=== PATIENT | female | born 1995 | race Two or more races ===

== ENCOUNTER 2024-02-22 18:11 | Emergency (ER) | payer OTHER ==
[~2024-02-22] VITALS: Ht 154.9 cm; Wt 109.1 kg
[2024-02-22 19:00] VITALS: BP 130/90; PULSE 88; RESP 18; TEMP 97.8; O2SAT 99
--- NOTE | 2024-02-22 19:33 | ED.PDOC ---
HPI Comments 28-year-old female with no pertinent past medical history, presents to ED for left thumb laceration x2 hours, without any other associated symptoms. Patient states that she cut herself with broken glass. She denies any numbness, tingling. She currently rates her pain as 3/10 in severity. No alleviating or aggravating factors. Patient reports that her last Tdap was within 5 years. Chief Complaint: Puncture Wound Time Seen by MD: 18:35 Reviewed Notes: Nurses Notes, Medications, Allergies Mode of Arrival: Ambulatory Complexity: Simple Laceration Length (cm): 1 Past Medical History PAST MEDICAL HISTORY: Denies Surgical History: Denies all surgeries HEAD OF GLOBAL STRATEGIC PARTNERSHIPS History: No Pertinent HEAD OF GLOBAL STRATEGIC PARTNERSHIPS History Family History Family History: Reviewed,noncontributory to illness Social History Smoker: Non-Smoker Alcohol: Denies ETOH Use Drugs: Denies Drug Use Constitutional: denies: chills, diaphoresis, fatigue, fever, malaise, sweats, weakness, others EENTM: denies: blurred vision, double vision, ear bleeding, ear discharge, ear drainage, ear pain, ear ringing, eye pain, eye redness, hearing loss, mouth pain, mouth swelling, nasal discharge, nose bleeding, nose congestion, nose pain, photophobia, tearing, throat pain, throat swelling, voice changes, others Respiratory: denies: cough, hemoptysis, orthopnea, SOB at rest, shortness of breath, SOB with excertion, stridor, wheezing, others Cardiovascular: denies: chest pain, dizzy spells, diaphoresis, Dyspnea on exertion, edema, irregular heart beat, left arm pain, lightheadedness, palpitations, PND, syncope, others Gastrointestinal: denies: abdomen distended, abdominal pain, blood streaked bowels, constipated, diarrhea, dysphagia, difficulty swallowing, hematemesis, melena, nausea, poor appetite, poor fluid intake, rectal bleeding, rectal pain, vomiting, others Genitourinary: denies: abnormal vagina bleeding, burning, dyspareunia, dysuria, flank pain, frequency, hematuria, incontinence, pain, , vagina discharge, urgency, others Neurological: denies: dizziness, fainting, headache, left sided numbness, left sided weakness, numbness, paresthesia, pre-existing deficit, right sided numbness, right sided weakness, seizure, speech problems, tingling, tremors, weakness, others Musculoskeletal: reports: joint pain; denies: back pain, gout, joint swelling, muscle pain, muscle stiffness, neck pain, others Integumetry: reports: laceration; denies: bruises, change in color, change in hair/nails, dryness, lesions, lumps, rash, wounds, others Allergic/Immunocompromised: denies: Difficulty Healing, Frequent Infections, Hives, Itching, others Hematologic/Lymphatic: denies: anemia, blood clots, easy bleeding, easy bruising, swollen glands, others Endocrine: denies: excessive hunger, excessive sweating, excessive thirst, excessive urination, flushing, intolerance to cold, intolerance to heat, unexplained weight gain, unexplained weight loss, others Psychiatric: denies: anxiety, bipolar disorder, depression, hopeless, panic disorder, schizophrenia, sleepless, suicidal, others All Other Systems: Reviewed and Negative Physical Exam General Appearance: No Apparent Distress, Normal HEENT: Normal ENT Inspection, Pharynx Normal, TMs Normal Neck: Full Range of Motion, Non-Tender, Normal, Normal Inspection Respiratory: Chest Non-Tender, Lungs Clear, No Accessory Muscle Use, No Respiratory Distress, Normal Breath Sounds Cardiovascular: No Edema, No JVD, No Murmur, No Gallop, Normal Peripheral Pulses, Regular Rate/Rhythm Breast Exam: Deferred Gastrointestinal: No Organomegaly, Non Tender, No Pulsatile Mass, Normal Bowel Sounds, Soft Genitalia: Deferred Pelvic: Deferred Rectal: Deferred Extremities: No calf tenderness, Normal capillary refill, Normal inspection, Normal range of motion, Non-tender, No pedal edema Musculoskeletal : Apperance: Normal Neurologic: Alert, 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 No foreign body noted.), Normal Color, Warm Lymphatic: No Adenopathy Was a procedure done? Was a procedure done?: Yes Sedation Sedation?: No Laceration Repair : Length 1cm Laceration Repair Prep: Saline, by Irrigation Laceration Repair Wound Comple: epidermis/dermis repair Laceration Repair: Skin, Dermabond Informed consent obtained: Yes Risks, benefits, and alternati: Yes Notes The laceration was prepared in a sterile manner. Betadine was used to clean the surrounding region. Laceration itself was thoroughly irrigated with normal saline. Laceration was repaired using Dermabond. Patient tolerated procedure well without any complications. Differential diagnosis Generic Laceration: Tendon Injury, Abrasion/Contusion, Laceration X-Ray, Labs, Meds, VS Vital Signs Date Time Temp Pulse Resp B/P (MAP) Pulse Ox O2 Delivery O2 Flow Rate FiO2 02/22/24 18:20 97.8 88 18 130/90 (103) 99 X-Ray, Labs, Meds, VS Comment MDM: Patient with history as above presented with laceration. History obtained from patient. Patient was nontoxic, stable, afebrile, ambulatory, no acute distress. Exam as above. Exam reassuring against acute infection or surgical pathology. Differential diagnosis considered. Overall presentation is consistent with simple laceration. Low suspicion for foreign body, open fracture, infection, tendon injury, neurovascular injury. Laceration repair was done by me as described above, with improvement in symptoms. Patient was given post-laceration repair instructions. Keep the area dry for the next 24 hours. Avoid vigorously scrubbing the area afterwards and avoid excessive movement of the affected area. Return to the ED if any signs or symptoms of infection, including fever, drainage from the wound, increased redness, swelling, or pain. Consideration was given for admission, but the patient was stable for outpatient management. Tdap was up-to-date. Disposition: Discussed the need to follow up diagnostics, including incidental findings. Discharged the patient with instructions to obtain outpatient follow up of today's symptoms and findings, with strict return precautions if patient develops new or worsening symptoms. This medical document was created using the [employer] dictation system. Although this document has been carefully reviewed, there may still be some phonetic and typographical errors, which are due to imperfections of the software program, and do not reflect any compromise in the patient's medical care. Time of 1ST Reevaluation: 19:32 Reevaluation 1ST: Improved Patient Education/Counseling: Diagnosis, Treatment, Prognosis, Need For Follow Up Family Education/Counseling: Diagnosis, Treatment, Prognosis, Need For Follow Up Departure 1 Departure Time of Disposition: 19:32 Impression: Primary Impression: Thumb laceration Qualified Codes: S61.012A - Laceration without foreign body of left thumb without damage to nail, initial encounter Disposition: 01 HOME / SELF CARE / HOMELESS Condition: Fair Critical Care Note Critical Care Time?: No Stability Stability form required: No Heart Score Heart Score: Heart Score Response (Comments) Value History N/A 0 EKG N/A 0 Age N/A 0 Risk Factors N/A 0 Troponin N/A 0 Total 0 OBED DESAI PAC Feb 22, 2024 19:33
== END 2024-02-22 19:45 | disposition home or self-care (01) ==
LOC: ER 18:11
DX: S61.012A Laceration without foreign body of left thumb without damage to nail, initial encounter (principal); W25.XXXA Contact with sharp glass, initial encounter; Y93.89 Activity, other specified; Y92.89 Other specified places as the place of occurrence of the external cause; Y99.8 Other external cause status
CPT/HCPCS: 12001

== ENCOUNTER 2025-02-13 10:45 | Emergency (ER) | payer OTHER ==
[~2025-02-13] VITALS: Ht 154.9 cm; Wt 105.2 kg
[2025-02-13] MEDS ORDERED: AMOX500C2 PO (11:20)
[2025-02-13] MEDS ORDERED: IBUP1TAB5 PO (11:20)
--- NOTE | 2025-02-13 11:20 | ED.PDOC ---
Eye-HPI HPI Comments This is a 29-year-old female that comes in with an earache on both sides. She states she has been feeling sick for the last couple of days when her symptoms started. She has no other symptoms no fever chills no vomiting has been a little bit dizzy. She has had ear infections previously. Chief Complaint: Earache Time Seen by MD: 10:48 Reviewed Notes: Nurses Notes, Medications, Allergies Allergies: Coded Allergies: NO KNOWN ALLERGIES (Unverified , 02/13/25) Information Source: Patient Mode of Arrival: Ambulatory Past Medical History PAST MEDICAL HISTORY: Denies Surgical History: Denies all surgeries BOOM CONVEYOR OPERATOR History: No Pertinent BOOM CONVEYOR OPERATOR History Family History Family History: Reviewed,noncontributory to illness Social History Smoker: Non-Smoker Alcohol: Denies ETOH Use Drugs: Denies Drug Use EENTM: reports: ear pain, nose congestion Neurological: reports: dizziness All Other Systems: Reviewed and Negative Physical Exam General Appearance: No Apparent Distress, None, Normal HEENT: PERRL/EOMI, Pharynx Normal, TM Abnormal (L), TM Abnormal (R) Neck: Full Range of Motion, Non-Tender, Supple Respiratory: Lungs Clear, No Respiratory Distress, Normal Breath Sounds Cardiovascular: Regular Rate/Rhythm Breast Exam: Deferred Gastrointestinal: Non Tender, Soft Genitalia: Deferred Pelvic: Deferred Rectal: Deferred Extremities: Normal capillary refill, Normal inspection, Normal range of motion Neurologic: Alert, No Motor Deficits, Normal Mood, No Sensory Deficits Cerebellar Function: Normal Reflexes: NOT DONE Skin: Dry, Warm Lymphatic: No Adenopathy Was a procedure done? Was a procedure done?: No EENT DIFF Eye: N/A Ear: Otitis Externa Nose: N/A Mouth: N/A Sore Throat: Viral Pharyngitis X-Ray, Labs, Meds, VS Vital Signs Date Time Temp Pulse Resp B/P (MAP) Pulse Ox O2 Delivery O2 Flow Rate FiO2 02/13/25 10:46 98.6 83 16 131/88 99 98.6 X-Ray, Labs, Meds, VS Comment Patient seen and examined by me. Patient does have bilateral otitis media. She has had a previously. She does have a little bit of dizziness most likely associated with infection. I will start her on some antibiotics and give her a prescription for Motrin as well. Instructed to rest drink lots of fluids.. Time of 1ST Reevaluation: 11:18 Reevaluation 1ST: Unchanged Patient Education/Counseling: Diagnosis, Treatment, Prognosis, Need For Follow Up Family Education/Counseling: No Family Present SEPSIS Sepsis Screen Date sepsis recognized/suspect: Feb 13, 2025 Time Sepsis recognized/suspect: 1046 Recent Procedure: No On Antibiotic Therapy: No Respiratory Rate >20: No Heart Rate >90: No Temp<36 C (96.8 F) or >38.3 C: No SBP <90 or MAP <65 mmHG: No New Acute Mental Status Change: No Is the patient on CPAP, BIPAP,: No Vital Signs Date Time Temp Pulse Resp B/P (MAP) Pulse Ox O2 Delivery O2 Flow Rate FiO2 02/13/25 10:46 98.6 83 16 131/88 99 98.6 Departure 1 Departure Time of Disposition: 11:18 Impression: Primary Impression: Otitis media Disposition: 01 HOME / SELF CARE / HOMELESS Condition: Good Additional Instructions: Finish antibiotics as directed Your dizziness should get better get better in the next couple of days as the infection starts to go away Continue the Motrin for pain and fever Rest, drink lots of liquids. e-Prescriptions Ibuprofen Micronized (Ibuprofen) 600 Mg Tab 600 MG PO Q6HPRN PRN for 5 Days, #20 TAB Prov: ELDA MEDINA 02/13/25 Amoxicillin Trihydrate (Amoxicillin) 500 Mg Cap 1 CAP PO TID for 7 Days, #30 CAP Prov: ELDA MEDINA 02/13/25 Discharged With: Self Critical Care Note Critical Care Time?: No Stability Stability form required: No ELDA MEDINA Feb 13, 2025 11:20
[2025-02-13 11:31] VITALS: BP 127/83; PULSE 88; RESP 18; TEMP 98.9; O2SAT 98
== END 2025-02-13 12:12 | disposition home or self-care (01) ==
LOC: ER 10:45
DX: H66.93 Otitis media, unspecified, bilateral (principal); Z79.899 Other long term (current) drug therapy
CPT/HCPCS: 96372; 99283; J1100

== ENCOUNTER 2025-02-15 22:49 | Emergency (ER) | payer OTHER ==
[~2025-02-15] VITALS: Ht 180.3 cm; Wt 107.2 kg
[~2025-02-15 22:49] MED LIST: AMOX500C2 PO; IBUP1TAB5 PO
[2025-02-16] MEDS ORDERED: MECL12.586 PO (01:10)
[2025-02-16] MEDS ORDERED: PRED20TA2 PO (01:10)
--- NOTE | 2025-02-16 01:10 | ED.PDOC ---
Eye-HPI HPI Comments 29-year-old female presents to ER with complaints of bilateral earache pain x 3 days. Patient reports bilateral earache pain and muffled hearing to bilateral ears x 3 days and states she was diagnosed with bilateral ear infection in ER here on 02/13/25 and has been taking amoxicillin and ibuprofen as prescribed without relief of bilateral earache pain. Patient also endorses dry cough and congestion x 4 days and reports intermittent dizziness that she states "normally occurs" with her ear infections. She presents to ER ambulatory on arrival, alert and oriented x4, with steady gait, in no distress. Denies fever, body aches, chills, ear drainage, headache, n/v, night sweats or any further symptoms/complaints Chief Complaint: Earache Time Seen by MD: 23:06 Primary Care Provider: DAVID Hester Notes: Nurses Notes, Medications, Allergies Allergies: Coded Allergies: NO KNOWN ALLERGIES (Unverified , 02/13/25) Home Meds Active Scripts Meclizine Hcl (Meclizine Hcl) 12.5 Mg Tab, 2 TAB PO DAILY PRN, #14 TAB 0 Refills Prov:CHLOE LEAL 02/16/25 Prednisone (Prednisone) 20 Mg Tab, 20 MG PO BID for 5 Days, #10 TAB 0 Refills Prov:CHLOE LEAL 02/16/25 Ibuprofen Micronized (Ibuprofen) 600 Mg Tab, 600 MG PO Q6HPRN PRN for 5 Days, #20 TAB Prov:ELDA MEDINAP 02/13/25 Amoxicillin Trihydrate (Amoxicillin) 500 Mg Cap, 1 CAP PO TID for 7 Days, #30 CAP Prov:ELDA MEDINA 02/13/25 Information Source: Patient Mode of Arrival: Ambulatory Past Medical History Past Medical History (Other): CURRENT OTITIS MEDIA Surgical History (Other): BILATERAL TYMPANOSTOMY TUBES MANAGER DIGITAL AD OPERATIONS History: No Pertinent MANAGER DIGITAL AD OPERATIONS History Family History Family History: Unknown Social History Smoker: Non-Smoker Alcohol: Denies ETOH Use Drugs: Denies Drug Use Constitutional: denies: chills, diaphoresis, fatigue, fever, malaise, sweats, weakness, others EENTM: reports: others (As stated in HPI) Respiratory: reports: others (As stated in HPI) Cardiovascular: denies: chest pain, dizzy spells, diaphoresis, Dyspnea on exertion, edema, irregular heart beat, left arm pain, lightheadedness, palpitations, PND, syncope, others Gastrointestinal: denies: abdomen distended, abdominal pain, blood streaked bowels, constipated, diarrhea, dysphagia, difficulty swallowing, hematemesis, melena, nausea, poor appetite, poor fluid intake, rectal bleeding, rectal pain, vomiting, others Genitourinary: denies: abnormal vagina bleeding, burning, dyspareunia, dysuria, flank pain, frequency, hematuria, incontinence, pain, , vagina discharge, urgency, others Neurological: reports: others (As stated in HPI) Musculoskeletal: denies: back pain, gout, joint pain, joint swelling, muscle pain, muscle stiffness, neck pain, others Integumetry: denies: bruises, change in color, change in hair/nails, dryness, laceration, lesions, lumps, rash, wounds, others Allergic/Immunocompromised: denies: Difficulty Healing, Frequent Infections, Hives, Itching, others Hematologic/Lymphatic: denies: anemia, blood clots, easy bleeding, easy bruising, swollen glands, others Endocrine: denies: excessive hunger, excessive sweating, excessive thirst, excessive urination, flushing, intolerance to cold, intolerance to heat, unexplained weight gain, unexplained weight loss, others Psychiatric: denies: anxiety, bipolar disorder, depression, hopeless, panic disorder, schizophrenia, sleepless, suicidal, others Physical Exam General Appearance: No Apparent Distress HEENT: PERRL/EOMI, Pharynx Normal, TMs Normal, Other (Bilateral tympanostomy tubes intact with mild erythema/bulging noted to bilateral TMs, decreased whispered hearing noted to bilateral ears. No drainage or skin changes to bilaterals ears noted. No TTP to bilateral mastoid process noted) Neck: Full Range of Motion, Non-Tender, Normal Respiratory: Chest Non-Tender, Lungs Clear, No Accessory Muscle Use, No Respiratory Distress, Normal Breath Sounds Cardiovascular: No Murmur, No Gallop, Regular Rate/Rhythm Breast Exam: Deferred Gastrointestinal: NOT DONE Genitalia: Deferred Pelvic: Deferred Rectal: Deferred Extremities: Normal capillary refill, Normal range of motion Neurologic: Alert, supervisor functional testing II-XII nml as Tested, No Motor Deficits, Normal Affect, Normal Mood, No Sensory Deficits Cerebellar Function: Normal Reflexes: Normal Skin: Dry, Normal Color, Warm Lymphatic: No Adenopathy Was a procedure done? Was a procedure done?: No Sedation Sedation?: No EENT DIFF Eye: N/A Ear: Abrasion, Cerumen Impaction, Foreign Body, Perforation, Sinusitis X-Ray, Labs, Meds, VS Vital Signs Date Time Temp Pulse Resp B/P (MAP) Pulse Ox O2 Delivery O2 Flow Rate FiO2 02/15/25 22:55 97.9 85 20 138/96 98 97.9 Rocephin 1 g IM ordered Solu-Medrol 125 mg IM ordered Meclizine 50 mg p.o. ordered Previous chart visit reviewed Advised to continue amoxicillin as prescribed Patient had improvement in symptoms and in no distress prior to discharge Patient reports that she is under the care of an ENT and was advised to follow up in 1-2 days for further evaluation Advised to follow up with PCP in 1-2 days Patient verbalized understanding and agreeable with current plan of care Advised to return to ER immediately if symptoms worsen Time of 1ST Reevaluation: 00:44 Reevaluation 1ST: N/A Patient Education/Counseling: Diagnosis, Treatment, Prognosis, Need For Follow Up Family Education/Counseling: No Family Present SEPSIS Sepsis Screen Date sepsis recognized/suspect: Feb 15, 2025 Time Sepsis recognized/suspect: 2256 Recent Procedure: No On Antibiotic Therapy: No Respiratory Rate >20: No Heart Rate >90: No Temp<36 C (96.8 F) or >38.3 C: No SBP <90 or MAP <65 mmHG: No New Acute Mental Status Change: No Is the patient on CPAP, BIPAP,: No Physician Orders Methylprednisolone Sod Succ (Solu Medrol (02/16/25 01:15) Ceftriaxone Sodium (Rocephin) (02/16/25 01:15) Meclizine Tablet (Antivert Tablet) (02/16/25 01:15) Vital Signs Date Time Temp Pulse Resp B/P (MAP) Pulse Ox O2 Delivery O2 Flow Rate FiO2 02/15/25 22:55 97.9 85 20 138/96 98 97.9 Departure 1 Departure Time of Disposition: 01:08 Impression: Primary Impression: Otitis media of both ears Qualified Codes: H66.93 - Otitis media, unspecified, bilateral Additional Impression: Upper respiratory infection Qualified Codes: J06.9 - Acute upper respiratory infection, unspecified Disposition: 01 HOME / SELF CARE / HOMELESS Condition: Stable e-Prescriptions Meclizine Hcl (Meclizine Hcl) 12.5 Mg Tab 2 TAB PO DAILY PRN, #14 TAB 0 Refills Prov: CHLOE LEAL 02/16/25 Prednisone (Prednisone) 20 Mg Tab 20 MG PO BID for 5 Days, #10 TAB 0 Refills Prov: CHLOE LEAL 02/16/25 Discharged With: Friend Critical Care Note Critical Care Time?: No Stability Stability form required: No Heart Score Heart Score: Heart Score Response (Comments) Value History N/A 0 EKG N/A 0 Age N/A 0 Risk Factors N/A 0 Troponin N/A 0 Total 0 CHLOE LEAL Feb 16, 2025 01:10
[2025-02-16 01:32] VITALS: BP 133/88; PULSE 82; RESP 18; TEMP 98.1
[2025-02-16] MEDS: MECLIZINE HCL 25 MG TAB PO ONE (01:34)
[2025-02-16] MEDS: methylPREDNISolone SOD SUCC 125 MG/2 ML VL IM ONE (01:41)
[2025-02-16] MEDS: cefTRIAXone SOD 1,000 MG VL IM ONE (01:41)
[2025-02-16 01:42] VITALS: O2SAT 97
== END 2025-02-16 01:53 | disposition home or self-care (01) ==
LOC: ER 22:49
DX: H66.93 Otitis media, unspecified, bilateral (principal); J06.9 Acute upper respiratory infection, unspecified; Z79.52 Long term (current) use of systemic steroids; Z79.2 Long term (current) use of antibiotics
CPT/HCPCS: 96372; 99284; J0696; J2919; J8597